=== PATIENT | female | born 1960 | race Caucasian/White ===

== ENCOUNTER 2024-03-14 13:46 | Inpatient (IN) | payer BC, SELFPAY ==
[2024-03-14] VITALS (11 sets, daily range): BP systolic 98–151; BP diastolic 56–114; BMI 28.8
--- NOTE | 2024-03-14 09:38 | ED.GENMED ---
History of Present Illness
General
Chief Complaint: Breathing Problem
Time Seen by Provider: 03/14/24 09:26
Travel History
Have you had any contact with someone who has COVID-19?: No
Do you have any symptoms of coronavirus? Fever > 100 degrees, chills, cough, shortness of breath, sore throat, loss of taste or smell, muscle aches, or headache?: No
History of Present Illness
History of Present Illness:
63-year-old female with history of coronary artery disease status post STEMI in 2016 (DEMETRIO x 2) presents to the emergency department for evaluation of sudden onset of sweating that developed at approximately 7:30 AM today while at work. She states
she was in the freezer when this began. States that symptoms were quite comparable to her IA from 2016. She denies any chest pain or shortness of breath currently. Upon arrival to the emergency department states that she feels improved but she
has noted on telemetry to be in a rapid A-fib which is new for her.
Past History
Past History
ED Past Medical History: CAD, HTN, IA (Inferior wall 02/2016) and Other (Multiple sclerosis)
ED Past Surgical History: Cardiac (Stents X3)
Social History
Tobacco: Smoker
Alcohol: None
Drug: None
Personal: Single
Living: alone
Employment: Employed
Review of Systems
Review of Systems
Allergies reviewed?: Yes
All Other Systems: ROS reviewed and negative except as documented in HPI and ROS
Phy Exam
Physical Exam
Physical Exam:
GEN: Well appearing, NAD, WDWN
HEENT: Oral mucosa moist, no scleral icterus
Cardiac: And rhythm, no irregular and tachycardic, no murmurs
Lung: No respiratory distress, no tachypnea, Lungs clear to auscultation bilaterally
MSK: No gross deformity or injuries
Skin: Good color, no pallor or jaundice, no rashes
Neuro: AO x3, moves all extremities freely
Psych: Calm, cooperative
Scores
Heart Failure Risk
Heart Failure Risk Score: Not Applicable
Course
Orders/Labs/Results
Orders:
Orders
03/14/24 09:17
Electrocardiogram (*1) Urgent
Reason for Study: Shortness of Breath
EKG- Treatment ONCE
03/14/24 10:15
Metoprolol [Lopressor] 5 mg IV NOW STA
03/14/24 10:24
Complete Blood Count/With Diff Urgent
Comprehensive Metabolic Panel Urgent
Magnesium Urgent
TSH Reflex To Free T4 Urgent
Troponin I Urgent
03/14/24 11:07
Electrocardiogram (*1) Urgent
Reason for Study: Chest Pain
EKG- Treatment ONCE
03/14/24 12:09
Troponin I Routine
03/14/24 13:15
Admit/Transfer Patient As Directed
Co-Sign Provider:
Level of Care: Inpatient admission
Assign to:: IVU
Physician / Group: Hospitalist
Diagnosis: IA
Reason for Hospitalization: .
Expected length of stay greater than two midnights?: Yes
ELOS- Estimated Length of Stay in days: 3
I certify the patient meets the requirements for IP care: Yes
03/14/24 13:[address] See Dose Instructions PO NOW STA
Discontinue all Active Warfarin orders?: Yes
03/14/24 13:23
PTT Urgent
Comment: Obtain baseline before beginning heparin infusion if not already collected
Heparin 4,000 units IV NOW STA
Pharmacy Request to Place See Dose Instructions PO NOW STA
Discontinue all Active Warfarin orders?: Yes
Nursing to Place Non Medication Order As Directed
Physician Order: PTT 6 hours after initial start of Heparin infusion
03/14/24 13:30
Heparin 47609 Units/250 ml 25,000 units in 250 ml IV PER PROTOCOL
Weight to be used for heparin protocol in kilograms (kg):: 81.9
Protocol:: Cardiac Tx/Acute Coronary
PTT Goal Range to be used:: PTT 73 to 111 seconds
Order type:: Initial
INITIAL Infusion Dose (UNITS/KG/hr) & then follow protocol:: 15 units/kg/hr
Infusion Dose in UNITS/hr & then follow protocol (UNITS/hr):: 1,250
INFUSION RATE in mL/hr & then follow protocol (mL/hr):: 12.5
PTT less than or equal to 64 seconds:: Increase rate by 200 units/hr (+ 2 mL/hr)
PTT 64.1 to 72.9 seconds:: Increase rate by 100 units/hr (+ 1 mL/hr)
PTT 73 to 111 seconds:: Target Range. No change in rate.
PTT 111.1 to 130.9 seconds:: Decrease rate by 100 units/hr (- 1 mL/hr)
PTT 131 to 199.9 seconds:: HOLD for 1 hr. Then decrease rate by 200 units/hr (- 2 mL/hr)
PTT greater than or equal to 200 seconds:: HOLD for 2 hrs & Notify Provider. Then decrease by 200 units/hr (-
2 mL/hr)
Lab follow-up:: Each change, PTT q6h until 2 consecutive are therapeutic. Then PTT
daily.
03/14/24 14:[address] See Dose Instructions IV DIRECTED
Abnormal Lab Results
03/14/24 03/14/24
10:24 12:09
WBC 12.3 H 10^3/uL
(4.8-10.8)
Hgb 16.3 H g/dL
(12.0-16.0)
MCH 33.1 H pg
(27.0-31.0)
MPV 11.0 H fL
(7.4-10.4)
Absolute Neuts (auto) 8.7 H 10^3/uL
(1.4-6.5)
Absolute Monos (auto) 0.7 H 10^3/uL
(0.1-0.6)
Chloride 108 H mmol/L
(98-107)
BUN 19 H mg/dl
(7-17)
Glucose 103 H mg/dl
(70-99)
Troponin I 0.044 H* ng/ml 0.093 H* D ng/ml
03/14/24 10:24
03/14/24 10:24
Vital Signs
Initial and Last Documented VS:
Initial Vital Signs
Pulse Ox
97
03/14/24 09:12
Last Documented Vital Signs
Temp Pulse Resp BP Pulse Ox
98.0 F 62 23 145/87 95
03/14/24 09:23 03/14/24 13:30 03/14/24 13:30 03/14/24 13:02 03/14/24 13:30
MDM/Problems Addressed
MDM/Problems Addressed:
Given the patient likens her symptoms as comparable to her past STEMI troponin was obtained during initial workup. During this time she was noted to convert from rapid A-fib to a sinus bradycardia shortly after administration of IV metoprolol.
Patient remained in a normal sinus rhythm thereafter. Her initial troponin was elevated, felt this was most likely due to rate related ischemia due to rapid A-fib however repeat troponin obtained was significantly more elevated than the initial.
Given that the patient likens the symptoms to her past STEMI we will admit to the hospitalist service for further troponin trending, IV heparin will be initiated both from a potential ischemia standpoint as well as from an A-fib anticoagulant
standpoint.
Comment
Comment:
Initial EKG independently interpreted by me shows a rapid atrial fibrillation at a rate of 107 with an interventricular conduction delay and significant T wave inversion/ST depressions laterally, the T wave abnormalities are comparable to past EKGs.
Repeat EKG independently interpreted by me shows sinus bradycardia with comparable lateral ST depressions
*Critical Care Note
Total Time (30-74mins, 75-104mins- exclusive of procedures): Not Applicable
ED Attending Note
-
Portions of this chart may have been created with voice recognition software.� Occasional wrong word or��sound alike� substitutions may have occurred due to the inherent limitations of voice recognition software.
Discharge Plan
Departure
Patient Disposition: Admit
Date of Disposition: 03/14/24
Time of Disposition: 13:06
Admit to: Telemetry
Presentation/result/management discussed w/ accepting MD/DO: Hospitalist
Discharge Problem:
Atrial fibrillation, new onset, Elevated troponin
Prescriptions:
No Action
atorvastatin 80 MG tablet
80 mg PO QPM Qty: 90 3RF
carvedilol 12.5 MG tablet
12.5 mg PO BID Qty: 180 3RF
clopidogrel 75 MG tablet
75 mg PO DAILY Qty: 90 3RF
aspirin 81 MG tablet,delayed release (DR/EC)
81 mg PO DAILY 0RF
nitroglycerin 0.4 MG tablet, sublingual
0.4 mg sublingual [id number] PRN (Reason: Chest Pain ) Qty: 30 2RF
losartan 50 MG tablet
50 mg PO DAILY
cyclobenzaprine 10 MG tablet
10 mg PO HS Qty: 5 0RF
Referrals:
Jesus Bautista MD [Family Provider] -
Interventions
Interventions:
*Risk Screen - Suicide Last Done: 03/14/24 09:12
*General Assessment Last Done: 03/14/24 09:12
*Neglect/Abuse Screening Last Done: 03/14/24 09:12
ED- Fall Risk Assessment Last Done: 03/14/24 09:12
*ED COVID-19 Vaccine History Last Done: 03/14/24 09:12
ED- Cardiac Assessment Last Done: 03/14/24 09:12
ED- Pulmonary Assessment Last Done: 03/14/24 09:12
Discharge Date and Time
Print Language: TAJIK
[2024-03-14 10:42] LABS: % Basophils 0.4 % (0-2); % Eosinophils 1.1 % (0-6); % Immature Granulocytes 0.3 % (0-0.5); % Lymphocytes 21.7 % (20.5-51.1); % Monocytes 5.5 % (1.7-9.3); Absolute Basophils 0.1 10^3/uL (0-0.2); Absolute Eosinophils 0.1 10^3/uL (0-0.7); Absolute Lymphocytes 2.7 10^3/uL (1.2-3.4); Absolute Monocytes 0.7 10^3/uL (0.1-0.6); Absolute Neutrophils 8.7 10^3/uL (1.4-6.5); Hematocrit 45.9 % (37.0-47.0); Hemoglobin 16.3 g/dL (12.0-16.0); Mean Corp Hgb Conc. 35.5 g/dL (33.0-37.0); Mean Corpuscular Hgb 33.1 pg (27.0-31.0); Mean Corpuscular Volume 93.1 fL (81.0-99.0); Nucleated Red Blood Cells % 0 %; Platelet Count 216 10^3/uL (130-400); Red Blood Cell Count 4.93 10^6/uL (4.20-5.40); Red Cell Dist. Width 12.8 % (11.5-14.5); White Blood Cell Count 12.3 10^3/uL (4.8-10.8)
[2024-03-14 10:49] LABS: ALT (SGPT) 15 U/L (0-35); AST (SGOT) 21 U/L (14-36); Albumin 4.2 g/dl (3.5-5.0); Alkaline Phosphatase 89 U/L (38-126); Blood Urea Nitrogen 19 mg/dl (7-17); Calcium 9.7 mg/dl (8.4-10.2); Carbon Dioxide 24 mmol/L (22-30); Chloride 108 mmol/L (98-107); Glucose 103 mg/dl (70-99); Potassium 4.5 mmol/L (3.5-5.1); Sodium 136 mmol/L (135-145); Total Bilirubin 0.6 mg/dl (0.2-1.3); Total Protein 7.2 g/dl (6.3-8.2); eGFR > 60.00
[2024-03-14] MEDS: LOPRESSOR 5 MG IV (10:50)
[2024-03-14 10:58] LABS: Troponin I 0.044 ng/ml
[2024-03-14 11:18] LABS: TSH Reflex To Free T4 1.87 uIU/ml (0.47-4.68)
[2024-03-14 12:54] LABS: Troponin I 0.093 ng/ml
--- NOTE | 2024-03-14 13:14 | HPS.HSE ---
Addendum entered and electronically signed by Mansi Alvarez MD 03/14/24 17:07:
Addendum
Senior Product Consultant evaluated the pt
Positive troponin c/w likely nonischemic myocardial injury due to cardiac arrhythmias. f/w echo
End
Original Note:
Family Physician
-
Family Physician: Jesus Bautista
Chief Complaint
-
Diaphoresis and near syncopal episode
History of Present Illness
63 years old female came from home. Patient was at work. She works at [employer]. She was getting food in the freezer when she suddenly felt diaphoretic and weak. She was noticed by the staff. She did not have syncopal episode or lose
consciousness. She denied chest pain. She felt some shortness of breath. Upon arrival to the emergency room, she started to feel better and back to normal. She was noted on heart monitor to have rapid atrial fibrillation which seemed new to her.
Initial troponin 0.04 then went up to 0.09. She sees Dr. Hernandez. She reported she saw him last week without changes.
Last stress test was a few years ago.
Medical History
Past Medical History
Past Medical History: Reports Other (Coronary artery disease, multiple sclerosis, hypertension, tobacco use)
Past Surgical History: Reports Other (No recent major surgery)
Social History
Tobacco: Smoker
Alcohol: None
Drug: None
Personal: Single
Living: With Family
Employment: Employed
Family History
Family History: CAD
Allergies / Home Medications
Allergies reflects when Allergies were last updated in [facility].
Home Medications with original date entered in [facility]
Allergy/Medication List:
Allergies
Allergy/AdvReac Type Severity Reaction Status Date / Time
ciprofloxacin [From Cipro] Allergy Anaphylaxis Verified 07/09/19 15:12
ciprofloxacin HCl Allergy Anaphylaxis Verified 07/09/19 15:12
[From Cipro]
levofloxacin [From Levaquin] Allergy Anaphylaxis Verified 07/09/19 15:12
Home Medications
aspirin 81 mg tablet,delayed release 81 mg PO DAILY 03/18/16
losartan 50 mg tablet 50 mg PO DAILY 07/09/19
carvedilol 3.125 mg tablet 3.125 mg PO BID 03/14/24
mometasone 0.1 % topical cream 1 applic topical BIDPRN PRN scalp 03/14/24
rosuvastatin 40 mg tablet 40 mg PO DAILY 03/14/24
Review of Systems
-
History Source: Patient
A 12 point ROS was completed and negative except as noted: Yes
Constitutional: Denies Fever or Chills
EENT: Denies Sore Throat
Respiratory: Denies Cough or Trouble Breathing
Cardiac: Denies Chest Pain
Abdomen/GI: Denies Abdominal Pain
: Denies Dysuria or Frequency
Musculoskeletal: Denies Joint Swelling
Skin: Denies Itching or Rash
Neurological: Denies Numbness
Endocrine: Denies Temp Intolerance
Hematologic/Lymphatic: Denies Bruising
Psych: Denies Panic Disorder
Physical Exam
Vital Signs
Vital Signs
Temp Pulse Resp BP Pulse Ox
98.0 F 60 20 99/56 95
03/14/24 09:23 03/14/24 11:15 03/14/24 11:15 03/14/24 11:01 03/14/24 11:15
Physical Exam
General: No Apparent Distress and Comfortable
HEENT: Moist mucous membranes and Atraumatic
Respiratory: Clear
Cardiac: S1/S2 and Regular Rhythm
GI: Soft and Non Tender
Rectal: No Maroon Stools
Genito-urinary: No costovertebral tender
Musculoskeletal: No Cyanosis and No Edema
Skin: Warm; No Jaundice
Neuro: AO x 3 and Nonfocal/grossly intact; No Slurred Speech, Facial Droop or Tremors
Psych: Calm and Intact Judgment/Insight; No Anxious
Laboratory Results
-
03/14/24 10:24
03/14/24 10:24
Laboratory Results
Total Bilirubin 0.6 mg/dl (0.2-1.3) 03/14/24 10:24
AST 21 U/L (14-36) 03/14/24 10:24
ALT 15 U/L (0-35) 03/14/24 10:24
Alkaline Phosphatase 89 U/L (38-126) 03/14/24 10:24
Troponin I 0.093 ng/ml H* D 03/14/24 12:09
Impression/Plan
-
63 years old female presented with near syncopal episode, shortness of breath and diaphoretic episode that happened this morning and was found to have positive troponin
# Acute non-ST elevation IA
Patient presented with diaphoretic event with some shortness of breath that later resolved. No significant chest pain.
Troponin 0.04 went up to 0.09
EKG showed A-fib then sinus rhythm with right bundle branch block
Currently, patient is chest pain-free.
The patient to the IVU
Start the patient on intravenous heparin and monitor PTT
Continue with antiplatelet therapy
Continue with beta-patricia
Trend troponin
Nitroglycerin as needed
Order echocardiogram
Discussed with staple side laster
Appreciate cardiology help
# Paroxysmal atrial fibrillation with rapid ventricular response. History of right bundle branch block/moderate mitral regurgitation.
Patient does not have history of A-fib.
Currently back in sinus rhythm
Continue heart monitor
She will be on IV heparin for now
[id number] with history of IA, hypertension 6, she is around 3
# Primary hypertension, monitor blood pressure, avoid hypotension.
# Leukocytosis, no fever. No no cough. Likely reactive.
# History of multiple sclerosis. Currently on no treatment. She reports difficulty climbing up stairs at times. PT/OT
# Hyperlipidemia, continue Crestor.
Total time spent to see patient, examine the patient on the floor, review data and lab results, discuss treatment plan with patient, ER doctor, staple side laster, nursing staff around 75 minutes
[2024-03-14] MEDS: HEPARIN 4000 UNITS IV (14:25)
[2024-03-14 14:36] LABS: APTT 27.9 Sec (23.4-35.0)
[2024-03-14] MEDS: HEPARIN 25000 UNITS/250 ML IV (15:13)
--- NOTE | 2024-03-14 15:37 | CON.CAR ---
Addendum entered and electronically signed by Jude Almonte MD 03/14/24 15:53:
monitor troponins. reassess in AM. If no plan for invasive testing then will start Eliquis.
Original Note:
Consultation
Consultation Request
Date/Time Consultation Requested: 03/14/2024 at 1330
Date/Time Consultation Performed: 03/14/2024 at 1430
Requesting Provider: Dr. Alvarez
Performing Provider: Dr. Almonte
Reason for Consultation: A-fib and abnormal troponin
Medical History
-
History of Present Illness:
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
63-year-old woman with history of coronary artery disease, stenting of LAD and RCA 2015 and hypertension who was feeling fine and was at work at the [employer] she then just felt like she was sweating. No other associated symptoms including
no chest pain palpitations, heart racing or shortness of breath. She remembered having diaphoresis when she presented with coronary artery disease. She went to the emergency department and was noted to be in A-fib. Patient spontaneously converted
to sinus rhythm and she felt back to normal. Currently patient feels fine. She has no prior history of A-fib.
She has a history of hypertension and coronary artery disease. Denies having history of stroke, TIA, diabetes, PAD or CHF.
CHADSVASC 3(female, hypertension, CAD)
Still smokes
Past medical history
Stenting of LAD and RCA 2015
Smoking
Hypertension
AAA. Mild fusiform aneurysm dilation of the aorta 2.7 cm 2018. Ultrasound 2020 2.4 cm
Mildly dilated ascending aorta 4.2 cm by echo
Hypercholesterolemia
Echocardiogram 04/04/2023 normal left trickle function ejection fraction 75% mildly dilated proximal ascending aorta 4.2 cm, mild to moderate mitral regurgitation aortic sclerosis without stenosis
Past Medical History
Past Medical History: Other (As noted)
Social History
Tobacco: Smoker
Family History
Family History: CAD (Brother of [place])
Allergies / Home Medications
Allergy/AdvReac Type Severity Reaction Status Date / Time
ciprofloxacin [From Cipro] Allergy Anaphylaxis Verified 07/09/19 15:12
ciprofloxacin HCl Allergy Anaphylaxis Verified 07/09/19 15:12
[From Cipro]
levofloxacin [From Levaquin] Allergy Anaphylaxis Verified 07/09/19 15:12
�Medication �Instructions �Recorded �Confirmed �Type
aspirin 81 mg tablet,delayed 81 mg PO DAILY 03/18/16 03/14/24 Rx
release
losartan 50 mg tablet 50 mg PO DAILY 07/09/19 03/14/24 History
carvedilol 3.125 mg tablet 3.125 mg PO BID 03/14/24 03/14/24 History
mometasone 0.1 % topical cream 1 applic topical BIDPRN PRN scalp 03/14/24 03/14/24 History
rosuvastatin 40 mg tablet 40 mg PO DAILY 03/14/24 03/14/24 History
Review of Systems
-
All other systems: Negative unless noted
Physical Exam
Vital Signs
Temp Pulse Resp BP Pulse Ox
97.9 F 55 18 136/74 95
03/14/24 15:22 03/14/24 15:22 03/14/24 15:22 03/14/24 15:22 03/14/24 15:22
Lab Results
03/14/24 10:24
03/14/24 10:24
Troponin I 0.093 ng/ml H* D 03/14/24 12:09
Physical Exam
General: Well Developed and No Apparent Distress
HEENT: Normocephalic
Respiratory: Clear and Other (No wheezes rales or rhonchi)
Cardiac: Regular Rhythm (No murmur rub or gallop)
GI: Soft, Non Tender, Non Distended, Normal Bowel Sounds and Organomegaly (none)
Musculoskeletal: No Clubbing and No Edema
Skin: Warm and Rash (none)
Neuro: AO x 3
Hematologic/Lymphatic: No Lymphadenopathy
Psych: Calm and Other (cooperative)
Impression / Plan
-
PAF.
-Symptomatic
-New onset
-Spontaneous conversion back to sinus rhythm. Duration approximately 1 hour
-CHADSVASC 3 ( female HTN CAD)
-Anticoagulation with Eliquis
-Continue beta-patricia.
-Patient's baseline heart rate appears to be in the 50s and will limit medical therapy options for PAF.
-If patient continues to have symptomatic episodes then could consider ablation or Tikosyn.
-Long-term management to be directed by Dr. Hernandez
.
Elevated troponin. 0.09. May be acute nonischemic myocardial injury related to A-fib.
-Follow serial troponins.
-Would eventually consider Lexiscan to reassess CAD
CAD.
-Prior history of LAD and RCA stenting.
Data Reviewed
-
EKG: Report Reviewed by me
Radiology: Report Reviewed by me
Ultrasound: Report Reviewed by me
Medical Tests (Nuc Med, Echo etc): Report Reviewed by me
Labs: Labs Reviewed by me
[2024-03-14 16:03] LABS: Troponin I 0.247 ng/ml
--- NOTE | 2024-03-14 18:00 | PTCARENOTE ---
Pt admitted from ED. She denies any discomfort. Telemetry shows sinus bradycardia with RBBB at a rate @48-50's. Heparin infusion in progress. Troponins trending up slightly.
[2024-03-14] MEDS: COREG 3.125 MG PO (20:19)
[2024-03-14 22:20] LABS: APTT 98.4 Sec (23.4-35.0)
[2024-03-14 22:36] LABS: Troponin I 0.239 ng/ml
[2024-03-15 04:55] LABS: APTT 74.7 Sec (23.4-35.0)
[2024-03-15 05:22] VITALS: BP 123/74
[2024-03-15 07:53] VITALS: BP 140/84
[2024-03-15] MEDS: COREG 3.125 MG PO (07:57)
[2024-03-15] MEDS: COZAAR 50 MG PO (07:58)
[2024-03-15] MEDS: CRESTOR 40 MG PO (07:58)
[2024-03-15] MEDS: ASPIR LOW (ENTERIC COATED) 81 MG PO (07:58)
--- NOTE | 2024-03-15 10:19 | CM ---
Reviewed chart. Met with Ms. Fry to review discharge plans. She states prior to admission she resides with her sister and brother-in law in a two story home with one step to enter. She states she has a full flight of steps to get to bedroom/full
bathroom. She states she has a powder room on he first floor. She states prior to admission she was independent with ambulation and adls. She states she juarez not have any DME in the home. She states she has a prescription plan and uses [facility]. Telephone call to [facility]([phone]) to check on co-pay for Eliquis. He co-pay for a 30 day supply would be $50.00 a month and for 90 day supply her co-pay would be $150.00. She has commercial insurance so she can use $10.00
coupon. Placed the $10.00 coupon in her red discharge folder. Medical work-up in progress. The discharge plan is to return home with her sister and [id number] when medically stable.
[2024-03-15] MEDS: ELIQUIS 5 MG PO (10:46)
[2024-03-15 10:57] VITALS: BP 130/87
--- NOTE | 2024-03-15 13:53 | W.PN.HOSP.TC ---
Today's Communication/Plan
-
dc to home
Assessment / Plan
Assessment / Plan
Assessment:
Paroxysmal atrial fibrillation with rapid ventricular response.
History of right bundle branch block/moderate mitral regurgitation.
- converted back to NSR
- continue Coreg/Eliquis; stop ASA
- Echo: mild to moderate MR otherwise fairly normal
Primary hypertension
- continue BB/ARB
Non-NV trop elevation in setting of RVR/Afib
- no chest pain
- OP stress test to be considered
Hx of MS
HLD - statin
More than 30 minutes spent in discharge including
Final examination of the patient
Summarizing hospital stay
Instructions for continuing care to all relevant caregivers
Preparation of discharge records, prescriptions, and referral forms
Total time spent (in minutes):41
Anticipated Discharge: Today
Subjective/Interval History
-
Date of Service: March 15, 2024
denies any new complaints
Objective Data
-
Labs:
Laboratory Results
03/15/24
04:19
APTT 74.7 H
Vital Signs:
Vital Signs
Temp Pulse Resp BP Pulse Ox
98 F 47 16 130/87 92
03/15/24 10:57 03/15/24 10:57 03/15/24 10:57 03/15/24 10:57 03/15/24 10:57
I&O
03/14/24 03/15/24 03/16/24
06:59 06:59 06:59
Intake Total 240 / 240 505 / 505
Balance 240 / 240 505 / 505
Physical Exam
-
General: No Apparent Distress
HEENT: Normocephalic and Atraumatic
Respiratory: Negative Wheezes
Cardiac: Regular Rhythm and S1/S2
GI: Soft and Nontender
Musculoskeletal: No Edema
Neuro: AO x 3
Hematologic / Lymphatic: No Lymphadenopathy
Psych: Calm
Data Reviewed
-
Total Time Spent with Patient (in minutes): 42
Labs: Labs Reviewed by me
--- NOTE | 2024-03-15 13:57 | W.DS.TRANS ---
DC Summary - Program Management Analyst
-
Discharge Instructions:
Sleep Apnea Risk Intermediate
Discharge Diagnosis/Procedures new Afib with RVR, now in Normal rhythm
Diet Low Cholesterol
Activity As tolerated
Bathing Restrictions None
Instructions:
Stand-Alone Forms:
Changes to Home Medications: Yes
Discharge Medications:
DC Medications w/original date entered in [facility]
losartan 50 mg tablet 50 mg PO DAILY Blood Pressure 07/09/19
carvedilol 3.125 mg tablet 3.125 mg PO BID Heart Failure 03/14/24
mometasone 0.1 % topical cream 1 applic topical BIDPRN PRN scalp 03/14/24
rosuvastatin 40 mg tablet 40 mg PO DAILY High Cholesterol 03/14/24
apixaban 5 mg tablet (Eliquis) 5 mg PO BID #60 tabs 03/15/24
Home Medication Changes
Eliquis started, ASA stopped
Pending Results: No
Total time spent discharging patient (in min): 42
--- NOTE | 2024-03-15 14:15 | W.PN.CD ---
Today's Communication / Plan
-
Start Eliquis
Stop ASA
If more PAF we will consider AFib ablation referral
I reviewed the risk and benefits of Eliquis vs ASA. I reviewed signs/symptom of bleeding and action to take.
F/u in my office arranged
Impression / Plan
-
PAF, new, in sinus
Non ME troponin elevation
CAD, prior inf STEMI and then PCI of RCA and then LAD, stable
Feels well
Eager for home
Physical Exam
Vital Signs/Labs
Vital Signs
Temp Pulse Resp BP Pulse Ox
98 F 47 16 130/87 92
03/15/24 10:57 03/15/24 10:57 03/15/24 10:57 03/15/24 10:57 03/15/24 10:57
03/14/24 03/15/24 03/16/24
06:59 06:59 06:59
Actual Weight 78.5 kg
03/14/24 10:24
03/14/24 10:24
APTT 74.7 Sec (23.4-35.0) H 03/15/24 04:19
Magnesium 2.0 mg/dl (1.6-2.3) 03/14/24 10:24
LAB Results
03/14/24 03/14/24 03/14/24
10:24 12:09 15:33
Troponin I 0.044 H* 0.093 H* D 0.247 H* D
03/14/24
22:01
Troponin I 0.239 H*
Physical Exam
Constitutional: No acute distress
EENT: Anicteric
Cardiovascular: Rhythm & rate is regular, Pedal edema is absent and Rub absent
Respiratory: Respiratory effort normal and Lungs clear to auscul.
GI: Soft and Distention absent
Neuro/Psych: AO x 3
Data Reviewed
-
Date of Service: March 15, 2024
[2024-03-15 19:16] LABS: Hepatitis C Antibody Negative (Negative)
== END 2024-03-15 14:21 | disposition home or self-care (01) | DRG 310 ==
LOC: IVU 13:46
PROVIDERS: Physician Assistant; ADMITTING PHYSICIAN Internal Medicine; ATTENDING PHYSICIAN Internal Medicine; CONSULT PHYSICIAN Internal Medicine Cardiovascular Disease; EMERGENCY PHYSICIAN Student in an Organized Health Care Education/Training Program; FAMILY PHYSICIAN Family Medicine
DX: I48.0 Paroxysmal atrial fibrillation (principal); F17.200 Nicotine dependence, unspecified, uncomplicated; I10 Essential (primary) hypertension; Z79.82 Long term (current) use of aspirin; I25.10 Atherosclerotic heart disease of native coronary artery without angina pectoris; E78.00 Pure hypercholesterolemia, unspecified; I08.0 Rheumatic disorders of both mitral and aortic valves; I45.10 Unspecified right bundle-branch block
CPT/HCPCS: 80053; 83735; 84443; 84484; 85025; 85730; 86803; 93005; 93306; 96374; 99285